=== PATIENT | male | born 1975 | race Caucasian/White ===

== ENCOUNTER 2016-03-21 12:13 | Emergency (ER) | payer OTHER ==
[2016-03-21 13:39] VITALS: BP 129/87
--- NOTE | 2016-03-21 14:20 | UC ---
Throat Pain/Nasal Ganesh HPI - HPI Summary HPI Summary: Pt c/o fatigue, sinus congestion, ear pain bilateral with right greater than left., sore throat, and PND X 2 weeks. - History of Current Complaint Chief Complaint: UCGeneralIllness Stated Complaint: COUGH,SINUS,EAR PAIN Time Seen by Provider: 03/21/16 13:56 Hx Obtained From: Patient Onset/Duration: Gradual Onset, Lasting Weeks Severity: Mild Associated Signs & Symptoms: Positive: Other - sinus pressure, pain - Allergies/Home Medications Allergies/Adverse Reactions: Allergies Allergy/AdvReac Type Severity Reaction Status Date / Time seasonal allergy Allergy Eyes Uncoded 03/21/16 13:31 Itchy/Swollen/Red/Watery Home Medications: Home Medications Pseudoephedrine TAB* [Sudafed TAB*] 30 mg PO Q6H PRN 03/21/16 [History Confirmed 03/21/16] PMH/Surg Hx/FS Hx/Imm Hx Previously Healthy: Yes Respiratory History Of: Reports: Asthma - Surgical History Surgical History: Yes Surgery Procedure, Year, and Place: t/a as child. ear tubes as child - Family History Known Family History: Negative: Cardiac Disease, Hypertension, Diabetes - Social History Alcohol Use: Occasionally Substance Use Type: None Smoking Status (MU): Former Smoker When Did the Patient Quit Smoking/Using Tobacco: 18 years ago - Immunization History Most Recent Influenza Vaccination: not this season Review of Systems Constitutional: Fatigue Skin: Negative Eyes: Negative ENT: Sore Throat, Ear Ache, Other - sinus pressure Respiratory: Negative Cardiovascular: Negative Gastrointestinal: Negative Genitourinary: Negative Motor: Negative Neurovascular: Negative Musculoskeletal: Myalgia Neurological: Headache Psychological: Negative All Other Systems Reviewed And Are Negative: Yes Physical Exam Triage Information Reviewed: Yes Appearance: Ill-Appearing Vital Signs: Initial Vital Signs Temp 98.7 F 03/21/16 13:33 Pulse 78 03/21/16 13:33 Resp 16 03/21/16 13:33 BP 129/87 03/21/16 13:33 Pulse Ox 97 03/21/16 13:33 Vital Signs Reviewed: Yes ENT Exam: Other ENT: Positive: Nasal congestion, Other: - maxillary sinus tenderness Neck exam: Normal Respiratory Exam: Normal Cardiovascular Exam: Normal Musculoskeletal Exam: Normal Neurological Exam: Normal Psychological Exam: Normal Skin Exam: Normal Throat Pain/Nasal Course/Dx - Differential Dx/Diagnosis Differential Diagnosis/HQI/PQRI: Influenza, Pharyngitis, Sinusitis, URI Provider Diagnoses: sinusitis Discharge - Discharge Plan Condition: Stable Disposition: HOME Prescriptions: Amoxicillin (*) 875 mg PO BID #20 tab Pseudoephedrine-Guaifenesin [Mucinex D 60-600 mg] 1 tab PO DAILY #10 tab Patient Education Materials: Sinusitis (ED) Forms: *Work Release Referrals: CHRISTOFER Ohara [Primary Care Provider] -
== END 2016-03-21 14:38 | disposition home or self-care (01) ==
LOC: UCCORT 12:13
DX: J32.9 Chronic sinusitis, unspecified (principal); H92.03 Otalgia, bilateral; R53.83 Other fatigue; Z87.891 Personal history of nicotine dependence
CPT/HCPCS: 99212; G0463

== ENCOUNTER 2016-06-19 09:18 | Emergency (ER) | payer OTHER ==
[2016-06-19 09:50] VITALS: BP 131/80
--- NOTE | 2016-06-19 10:05 | UC ---
Throat Pain/Nasal Ganesh HPI - HPI Summary HPI Summary: NASAL CONGESTION X 5 DAYS, RIGHT EAR FULLNESS, DIZZINESS, PND , SINUS PRESSURE , MILD COUGH - History of Current Complaint Chief Complaint: UCRespiratory Stated Complaint: DIZZY EARS CONGESTION Time Seen by Provider: 06/19/16 09:59 Hx Obtained From: Patient Onset/Duration: Gradual Onset, Lasting Days - 5, Still Present Severity: Moderate Cough: Nonproductive Associated Signs & Symptoms: Positive: Sinus Discomfort, Nasal Discharge. Negative: Fever, Rash - Allergies/Home Medications Allergies/Adverse Reactions: Allergies Allergy/AdvReac Type Severity Reaction Status Date / Time seasonal allergy Allergy Eyes Uncoded 06/19/16 09:40 Itchy/Swollen/Red/Watery PMH/Surg Hx/FS Hx/Imm Hx Respiratory History Of: Reports: Asthma - Surgical History Surgical History: Yes Surgery Procedure, Year, and Place: t/a as child. ear tubes as child - Family History Known Family History: Negative: Cardiac Disease, Hypertension, Diabetes - Social History Alcohol Use: Occasionally Substance Use Type: None Smoking Status (MU): Former Smoker When Did the Patient Quit Smoking/Using Tobacco: 18 years ago - Immunization History Most Recent Influenza Vaccination: not this season Review of Systems Constitutional: Negative Skin: Negative Eyes: Negative ENT: Sore Throat, Ear Ache, Nasal Discharge Respiratory: Cough Cardiovascular: Negative Gastrointestinal: Negative Genitourinary: Negative All Other Systems Reviewed And Are Negative: Yes Physical Exam Triage Information Reviewed: Yes Appearance: Well-Appearing, No Pain Distress, Well-Nourished Vital Signs: Initial Vital Signs Temp 100 F 06/19/16 09:33 Pulse 81 06/19/16 09:33 Resp 18 06/19/16 09:33 BP 131/80 06/19/16 09:33 Pulse Ox 97 06/19/16 09:33 Vital Signs Reviewed: Yes Eye Exam: Normal Eyes: Positive: Conjunctiva Clear ENT: Positive: Normal ENT inspection, Hearing grossly normal, Pharyngeal erythema, Nasal congestion, Nasal drainage, TMs normal. Negative: TM bulging, TM dull, TM red Neck: Positive: Supple, Nontender, No Lymphadenopathy Respiratory: Positive: Chest non-tender, Lungs clear, Normal breath sounds Cardiovascular Exam: Normal Cardiovascular: Positive: RRR, No Murmur, Pulses Normal Abdominal Exam: Normal Neurological Exam: Normal Neurological: Positive: Alert, Muscle Tone Normal Skin Exam: Normal Throat Pain/Nasal Course/Dx - Differential Dx/Diagnosis Provider Diagnoses: URI Discharge - Discharge Plan Condition: Stable Disposition: HOME Patient Education Materials: Upper Respiratory Infection (ED) Forms: *Work Release Referrals: CHRISTOFER Ohara [Primary Care Provider] - 7 Days
== END 2016-06-19 10:13 | disposition home or self-care (01) ==
LOC: UCCORT 09:18
DX: J06.9 Acute upper respiratory infection, unspecified (principal); J45.909 Unspecified asthma, uncomplicated; Z87.891 Personal history of nicotine dependence
CPT/HCPCS: 99212; G0463

== ENCOUNTER 2017-11-20 14:58 | Emergency (ER) | payer OTHER ==
--- NOTE | 2017-11-20 16:09 | UC ---
Dizzy HPI HPI Summary: involved in a divorce and is having a difficult time of it, not depressed, but anxious. noted some dizzyness on standing over the last 24-48 hours, using zyrtec and flonase for sesonal allergies - History Of Current Complaint Chief Complaint: UCGeneralIllness Stated Complaint: CONGESTION Time Seen by Provider: 11/20/17 15:57 Hx Obtained From: Patient Onset/Duration: Gradual Onset, Lasting Days Timing: Constant Severity Initially: Moderate Severity Currently: Mild Pain Intensity: 0 Character: Lightheaded, Dizzy Aggravating Factor(s): Position Change Alleviating Factor(s): Lying Down Associated Signs And Symptoms: Positive: Negative - Risk Factors Cardiac Risk Factors: Negative CVA Risk Factor: Negative - Allergies/Home Medications Allergies/Adverse Reactions: Allergies Allergy/AdvReac Type Severity Reaction Status Date / Time seasonal allergy Allergy Eyes Uncoded 11/20/17 15:33 Itchy/Swollen/Red/Watery PMH/Surg Hx/FS Hx/Imm Hx Previously Healthy: Yes - Surgical History Surgical History: Yes Surgery Procedure, Year, and Place: t/a as child. ear tubes as child - Family History Known Family History: Positive: Hypertension, Diabetes Negative: Cardiac Disease - Social History Alcohol Use: Occasionally Substance Use Type: None Smoking Status (MU): Former Smoker When Did the Patient Quit Smoking/Using Tobacco: 18 years ago - Immunization History Most Recent Influenza Vaccination: not this season Review of Systems Constitutional: Negative Skin: Negative Eyes: Negative ENT: Other - dizzyness on standing Respiratory: Negative Cardiovascular: Negative Gastrointestinal: Negative Genitourinary: Negative Motor: Negative Neurovascular: Negative Musculoskeletal: Negative Neurological: Negative Psychological: Negative Is Patient Immunocompromised?: No All Other Systems Reviewed And Are Negative: Yes Physical Exam Triage Information Reviewed: Yes Appearance: Well-Appearing Vital Signs: Initial Vital Signs Temp 37.4 C 11/20/17 15:27 Pulse 92 11/20/17 15:27 Resp 17 11/20/17 15:27 BP 143/96 11/20/17 15:27 Pulse Ox 100 11/20/17 15:27 Vital Signs Reviewed: Yes Eye Exam: Normal Eyes: Positive: Conjunctiva Clear ENT Exam: Normal ENT: Positive: Normal ENT inspection, Other - negative danilo- hallpike testing Dental Exam: Normal Neck exam: Normal Neck: Positive: Supple Respiratory Exam: Normal Respiratory: Positive: Chest non-tender Cardiovascular Exam: Normal Cardiovascular: Positive: RRR Abdominal Exam: Normal Abdomen Description: Positive: Nontender Bowel Sounds: Positive: Present Musculoskeletal: Positive: Strength Intact Neurological Exam: Normal Neurological: Positive: Alert Psychological Exam: Normal Skin Exam: Normal Dizzy Course/Dx - Differential Dx/Diagnosis Differential Diagnosis/HQI/PQRI: Anxiety Provider Diagnoses: dizzyness, without evidence of orthostasis or positional vertigo Discharge - Sign-Out/Discharge Documenting (check all that apply): Patient Departure All imaging exams completed and their final reports reviewed: Yes - Discharge Plan Condition: Good Disposition: HOME Patient Education Materials: Dizziness (ED) Forms: *Work Release Referrals: Marcos Saenz MD [Primary Care Provider] - - Billing Disposition and Condition Condition: GOOD Disposition: Home
[2017-11-20 16:30] VITALS: BP 138/99
== END 2017-11-20 16:27 | disposition home or self-care (01) ==
LOC: UCCORT 14:58
DX: R42 Dizziness and giddiness (principal); Z87.891 Personal history of nicotine dependence
CPT/HCPCS: 99212; G0463

== ENCOUNTER 2018-01-15 16:17 | Emergency (ER) | payer OTHER ==
[2018-01-15 16:35] VITALS: BP 140/94
--- NOTE | 2018-01-15 16:48 | UC ---
Throat Pain/Nasal Ganesh HPI - HPI Summary HPI Summary: 42 y/o male presents to the urgent care c/o sinus pressure and pain w/ yellowish nasal discharge for the past week. Symptoms worsen on Sudn Pt c/o pressure underneath eyes, also above forehead that started last Saturday. Concerned about sinus infection. Pt states did take time off work but needs note to go back to work. - History of Current Complaint Chief Complaint: UCGeneralIllness Stated Complaint: SINUS PAIN,ALLERGIES Time Seen by Provider: 01/15/18 16:46 Hx Obtained From: Patient Onset/Duration: Gradual Onset, Lasting Weeks - 1 week, Still Present, Worse Since - 3 days Severity: Moderate Pain Intensity: 5 Pain Scale Used: 0-10 Numeric Cough: Nonproductive Associated Signs & Symptoms: Positive: Sinus Discomfort, Nasal Discharge - yellowish Related History: Seasonal Allergies - Epiglottits Risk Factors Epiglottis Risk Factors: Negative - Allergies/Home Medications Allergies/Adverse Reactions: Allergies Allergy/AdvReac Type Severity Reaction Status Date / Time seasonal allergy Allergy Eyes Uncoded 01/15/18 16:28 Itchy/Swollen/Red/Watery Home Medications: Home Medications Chlorphenir/Phenyleph/Aspirin [Dede-Gridley Plus Cold Tab Eff] 1 tab PO ONCE 09/25 [History Confirmed 01/15/18] PMH/Surg Hx/FS Hx/Imm Hx Previously Healthy: Yes Cardiovascular History: Hypertension - diet controlled - Surgical History Surgical History: Yes Surgery Procedure, Year, and Place: t/a as child. ear tubes as child - Family History Known Family History: Positive: Hypertension, Diabetes Negative: Cardiac Disease - Social History Occupation: Employed Full-time Lives: With Family Alcohol Use: Occasionally Substance Use Type: None Smoking Status (MU): Former Smoker When Did the Patient Quit Smoking/Using Tobacco: 7 years ago - Immunization History Most Recent Influenza Vaccination: not this season Review of Systems Constitutional: Negative Eyes: Negative ENT: Nasal Discharge - yellowish, Sinus Congestion, Sinus Pain/Tenderness Respiratory: Cough - dry Cardiovascular: Negative Gastrointestinal: Negative Genitourinary: Negative Motor: Negative Neurovascular: Negative Musculoskeletal: Negative Neurological: Headache Psychological: Negative Is Patient Immunocompromised?: No All Other Systems Reviewed And Are Negative: Yes Physical Exam - Summary Physical Exam Summary: Vitals: reviewed General: Well developed, well-nourished male patient with NAD. Head and face: Normocephalic and atraumatic, Positive tenderness over the frontal and maxillary sinuses.. Eyes: PERRLA, EOMI x 2. Normal conjunctiva. No eye discharge. ENT: Ears and TM with normal limits. Nose: edematous and erythematous nasal mucosa with with yellowish discharge and erythematous mucosa. Pharynx with erythema, no exudate. +yellowish PND Neck: Supple, no JVD, no carotid bruits and no lymphadenopathy. Lungs: clear, no rales, no rhonchi, no wheezes. CVS: RRR, S1 and S2 present no murmurs or gallops appreciated. Abdomen: soft nontender with positive bowel sounds. Extremities: no edema noted. Neuro: WNL. Skin: warm and dry Triage Information Reviewed: Yes Vital Signs: Initial Vital Signs Temp 99.2 F 01/15/18 16:29 Pulse 98 01/15/18 16:29 Resp 16 01/15/18 16:29 BP 140/94 01/15/18 16:29 Pulse Ox 97 01/15/18 16:29 Throat Pain/Nasal Course/Dx - Course Course Of Treatment: Pt with 2 weeks of symptoms getting worse. Pt Rx Amoxicillin PO and flonase nasal spray. Tessalon PO for cough. Discharge instructions explained to Pt. Advised to Return to the clinic or PCP if symptoms do not improve.Pt understood and agreed with plan of care. - Differential Dx/Diagnosis Differential Diagnosis/HQI/PQRI: Influenza, Laryngitis, Pharyngitis, Sinusitis, URI Provider Diagnoses: 1- Bacterial sinusitis Discharge - Sign-Out/Discharge Documenting (check all that apply): Patient Departure - D/c home All imaging exams completed and their final reports reviewed: No Studies - Discharge Plan Condition: Stable Disposition: HOME Prescriptions: Amoxicillin/Clavulanate TAB* [Augmentin TAB 875*] 875 mg PO BID #20 tab Fluticasone NASAL SPRAY 50MCG* [Flonase NASAL SPRAY 50MCG*] 2 spray BOTH NARES DAILY #1 btl Patient Education Materials: Sinusitis (ED), Low-Sodium Diet (ED) Forms: *Work Release Referrals: Marcos Saenz MD [Primary Care Provider] - 1 Week Additional Instructions: 1- Please increase fluid intake and rest. take full course of antibiotic to avoid resistance 2-Use Flonase nasal spray as directed to help drain fluid. Also buy saline drops to clear sinuses 3-Please Take Claritin PO to alleviate sinus congestion 4-Return to the clinic or PCP in 3 days if symptoms do not improve for further management and treatment. 5-Your BP is elevated today. please decrease salt in your diet, monitor BP and if it continues to be elevated please f/u with your PCP for further management - Billing Disposition and Condition Condition: STABLE Disposition: Home
== END 2018-01-15 17:25 | disposition home or self-care (01) ==
LOC: UCEAST 16:17
DX: J32.8 Other chronic sinusitis (principal); B96.89 Other specified bacterial agents as the cause of diseases classified elsewhere; Z87.891 Personal history of nicotine dependence
CPT/HCPCS: 99212; G0463

== ENCOUNTER 2018-01-20 18:13 | Emergency (ER) | payer OTHER ==
[2018-01-20 18:24] VITALS: BP 118/88
--- NOTE | 2018-01-20 19:25 | UC ---
Headache HPI - HPI Summary HPI Summary: 42 y/o male presents to the urgent care c/o body aches and RAMIREZ. Pt reports he was here on 01/15/2018 and Dx w/ bacterial sinusitis and Rx Augmenting. His sinusitis started 2 weeks ago. He reports symptoms were improving until 2 days ago when RAMIREZ returned w/ body aches and fatigue. 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 He took Ibuprofen PO today and RAMIREZ resolved. He requests a note for work since his symptoms has not completely resolved. Pt denies cough, SOB, chest pain, abdominal pain, N/V/D. - History Of Current Complaint Chief Complaint: UCHeadache Stated Complaint: HEADACHE Time Seen by Provider: 01/20/18 19:05 Hx Obtained From: Patient Onset/Duration: Gradual Onset, Lasting Weeks - 2 weeks, Worse Since - 2 days Onset Of Symptoms: Resolved Initially Headache Was: Moderate Currently Pain Is: Mild Pain Intensity: 4 - body aches Pain Scale Used: 0-10 Numeric Timing: Intermittent, Lasting:, Hours - 2 hrs Character: Typical Headache Location of Headache: Diffuse Aggravating Factor(s): Other - body achesa and fatigue Allevating Factor(s): Rest, Medication Associated Signs And Symptoms: Positive: Sinus Pressure. Negative: Dizziness, Seizure, Nausea, Vomiting, Fever, Neck Pain, Neck Stiffness, Decreased LOC, Visual Changes - Risk Factors SAH Risk Factors: Negative Meningitis Risk Factors: Negative SDH Risk Factors: Negative Temporal Arteritis Risk Factors: Negative - Allergies/Home Medications Allergies/Adverse Reactions: Allergies Allergy/AdvReac Type Severity Reaction Status Date / Time seasonal allergy Allergy Eyes Uncoded 01/20/18 18:25 Itchy/Swollen/Red/Watery Home Medications: Home Medications Acetaminophen [Pain Relief] 500 mg PO ONCE PRN 01/20/18 [History Confirmed 01/20] PMH/Surg Hx/FS Hx/Imm Hx Previously Healthy: Yes Cardiovascular History: Hypertension - Surgical History Surgical History: Yes Surgery Procedure, Year, and Place: t/a as child. ear tubes as child - Family History Known Family History: Positive: Hypertension, Diabetes Negative: Cardiac Disease - Social History Occupation: Employed Full-time Lives: With Family Alcohol Use: Rare Substance Use Type: None Smoking Status (MU): Former Smoker When Did the Patient Quit Smoking/Using Tobacco: 7 years ago - Immunization History Most Recent Influenza Vaccination: not this season Review of Systems All Other Systems Reviewed And Are Negative: Yes Constitutional: Positive: Fatigue, Other - body aches Skin: Positive: Negative Eyes: Positive: Negative ENT: Positive: Nasal Discharge - clear Respiratory: Positive: Negative Cardiovascular: Positive: Negative Gastrointestinal: Positive: Negative Genitourinary: Positive: Negative Motor: Positive: Negative Neurovascular: Positive: Negative Musculoskeletal: Positive: Myalgia Neurological: Positive: Headache Psychological: Positive: Negative Is Patient Immunocompromised?: No Physical Exam - Summary Physical Exam Summary: VITAL SIGNS: Reviewed. GENERAL: Patient is a well developed and nourished male who is sitting comfortable in the examining table. Patient is not in any acute respiratory distress. HEAD AND FACE: No signs of trauma. No ecchymosis, hematomas or skull depressions. No sinus tenderness. EYES: PERRLA, EOMI x 2, No injected conjunctiva, no nystagmus. No photophobia. EARS: Hearing grossly intact. Ear canals and tympanic membranes are within normal limits. Nose: edematous and erythematous nasal mucosa w/ clear nasal discharge. MOUTH: Positive no erythema, no tonsillar enlargement. Uvula in midline. NECK: Supple, trachea is midline, Positive anterior cervical lymphadenopathy, no JVD, no carotid bruit, no c-spine tenderness, neck with full ROM. No meningeal signs, no Kernig's or brudzinskis signs. CHEST: Symmetric, no tenderness at palpation LUNGS: Clear to auscultation bilaterally. No wheezing or crackles. CVS: Regular rate and rhythm, S1 and S2 present, no murmurs or gallops appreciated. ABDOMEN: Soft, non-tender. No signs of distention. No rebound no guarding, and no masses palpated. Bowel sounds are normal. EXTREMITIES: FROM in all major joints, no edema, no cyanosis or clubbing. NEURO: Alert and oriented x 3. No acute neurological deficits. Speech is normal and follows commands. SKIN: Dry and warm Triage Information Reviewed: Yes Vital Signs: Initial Vital Signs Temp 98.1 F 01/20/18 18:19 Pulse 95 01/20/18 18:19 Resp 18 01/20/18 18:19 BP 118/88 01/20/18 18:19 Pulse Ox 99 01/20/18 18:19 Headache Course/Dx - Course Course Of Treatment: 42 y/o male presents to the urgent care c/o body aches and RAMIREZ. Pt reports he was here on 01/15/2018 and Dx w/ bacterial sinusitis and Rx Augmenting. His sinusitis started 2 weeks ago. He reports symptoms were improving until 2 days ago when RAMIREZ returned w/ body aches and fatigue. 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 He took Ibuprofen PO today and RAMIREZ resolved. He requests a note for work since his symptoms has not completely resolved. Pt denies cough, SOB, chest pain, abdominal pain, N/V/D. Hx obtained. PE:WNL. Pt possible viral syndrome. Influenza A&B ordered: result: negative. Pt advised to continue taking ibuprofen PO and finish Augmentin PO since symptoms were improving. Advised on hand washing. Pt advised to rest, increase fluid intake, eat well and avoid strenuous exercise. If symptoms do not improve or worsen advised to return to the urgent care or f/u with her PCP for further evaluation and treatment. Pt understood and agreed with plan of care. - Differential Dx/Diagnosis Differential Diagnosis/HQI/PQRI: Migraine, Sinus Headache, Tension Headache, Viral Syndrome Provider Diagnoses: 1- Viral syndrome. 2- Headache Discharge - Sign-Out/Discharge Documenting (check all that apply): Patient Departure - D/c home All imaging exams completed and their final reports reviewed: No Studies - Discharge Plan Condition: Stable Disposition: HOME Patient Education Materials: Viral Syndrome (ED) Forms: *Work Release Referrals: Marcos Saenz MD [Primary Care Provider] - 3 Days Additional Instructions: 1-Please take ibuprofen PO q6-8hrs prn as instructed after meals to alleviate pain and swelling. Increase fluid intake, eat well, rest and avoid strenuous exercise 2-If symptoms do not improve or worsen please return to the urgent care or f/u with your PCP in 3 days for further evaluation and treatment. - Billing Disposition and Condition Condition: STABLE Disposition: Home
== END 2018-01-20 20:10 | disposition home or self-care (01) ==
LOC: UCEAST 18:13
DX: B34.9 Viral infection, unspecified (principal); R51 Headache; I10 Essential (primary) hypertension; Z91.048 Other nonmedicinal substance allergy status; Z87.891 Personal history of nicotine dependence
CPT/HCPCS: 99211; G0463

== ENCOUNTER 2018-02-21 16:07 | Emergency (ER) | payer OTHER ==
[2018-02-21 16:18] VITALS: BP 134/81
--- NOTE | 2018-02-21 17:06 | UC ---
Knee Pain HPI - HPI Summary HPI Summary: Patient presents to urgent care reporting progressive pain and swelling and redness of his left knee. Patient states approximately 4 days ago he tripped and fell in the garage over an air hose. Pt landing on his left knee. Patient with an abrasion to his left knee. Patient states has not taken anything for pain or fever. Pt with difficulty walking related to pain and swelling. with difficulty flexing knee related to swelling. Patient states he's had no nausea vomiting. Patient is not immunocompromised. Patient's tetanus is up-to-date. Patient without any paresthesias to his ankle or foot. Patient without any other complaints. - History of Current Complaint Chief Complaint: UCLowerExtremity Stated Complaint: KNEE PAIN Time Seen by Provider: 02/21/18 16:56 Hx Obtained From: Patient Severity Initially: Moderate Severity Currently: Moderate Pain Intensity: 7 Pain Scale Used: 0-10 Numeric - Allergies/Home Medications Allergies/Adverse Reactions: Allergies Allergy/AdvReac Type Severity Reaction Status Date / Time seasonal allergy Allergy Eyes Uncoded 02/21/18 16:18 Itchy/Swollen/Red/Watery PMH/Surg Hx/FS Hx/Imm Hx Previously Healthy: Yes - Surgical History Surgical History: Yes Surgery Procedure, Year, and Place: t/a as child. ear tubes as child - Family History Known Family History: Positive: Hypertension, Diabetes Negative: Cardiac Disease - Social History Occupation: Employed Full-time Lives: With Family Alcohol Use: Rare Substance Use Type: None Smoking Status (MU): Former Smoker When Did the Patient Quit Smoking/Using Tobacco: 7 years ago - Immunization History Most Recent Influenza Vaccination: not this season Review of Systems All Other Systems Reviewed And Are Negative: Yes Constitutional: Positive: Fever Skin: Positive: Other - left knee Musculoskeletal: Positive: Other: - pain, swelling Left knee, LLE Is Patient Immunocompromised?: No Physical Exam - Summary Physical Exam Summary: Vital Signs Reviewed: Yes - tachycardic, febrile A+Ox3, discomfort with ambulation Eyes: Conjunctiva Clear, ENT: Hearing grossly normal mmmoist Neck: Positive: Supple Respiratory: Positive: No respiratory distress, No accessory muscle use Cardiovascular: 2+ DP, PT CBT < 2 sec Musculoskeletal Exam: Pt with diffuse edema left anterior patellar extening to prox anterior allen and 2/3 circumferential upper part of calf. Not tense, pain with calf pain Discomfort worse with flexion ofknee -pt states feels worse over patella. + flex/ext ankle, great toe extension without diffiuculty Neurological: Positive: Alert, + sensation throughout Psychological: Positive: Normal Response To Family Skin: Positive: left anterior patellar and prox allen with erythema, warmth. scabbed abraison on patella - no fluctuance, mild induration no drainage Triage Information Reviewed: Yes Vital Signs: Initial Vital Signs Temp 101.0 F 02/21/18 16:12 Pulse 120 02/21/18 16:12 Resp 16 02/21/18 16:12 BP 134/81 02/21/18 16:12 Pulse Ox 99 02/21/18 16:12 Knee Pain Course/Dx - Course Course Of Treatment: Patient presents to urgent care with progressive pain and discomfort in his left lower extremity. Patient states he had a mechanical fall approximately 4 days ago where he sustained an abrasion to his left knee. Patient with progressive erythema, edema and warmth and pain in this area. Patient has not taken any analgesia. Patient walking with a limp so didn't do pain. Patient with cellulitis of the patella to the anterior allen. Patient with mild tension to the proximal calf but not throughout. Patient flex extend ankle without difficulty. Patient noted be febrile and tachycardic urgent care. We'll give Tylenol. Recommend patient to emergency department. Just patient patient may need labwork intravenous fluids and possibly intravenous antibiotics. Patient's tetanus is up-to-date. Patient declined EMS transfer. Patient will drive himself. Advised patient to pullover call 911 symptoms changes. We'll notify the ED of patient transfer. Patient aware that treatment plan will be at the discretion of the providers emergency department. Pt in agreement with plan. Dr. He 17:20 - ED - aware of pt coming by POV - Differential Dx/Diagnosis Provider Diagnosis: Abrasion of left knee, Cellulitis of left leg Discharge - Sign-Out/Discharge Documenting (check all that apply): Patient Departure All imaging exams completed and their final reports reviewed: No Studies - Discharge Plan Condition: Stable Disposition: HOME-RECOMMEND TO ED Patient Education Materials: Cellulitis (ED) Referrals: Marcos Saenz MD [Primary Care Provider] - Additional Instructions: The doctor that evaluated you today thinks that you need additional testing that can be completed the emergency department. It is recommended that you go directly to emergency department for further evaluation. Please let the providers at the desk in the emergency department now you were sent from the urgent care center. This evaluation may include blood work or imaging. This testing will be directed and decided by the provider that evaluate you at the emergency department. If pain becomes worse, you feel lightheaded, you have uncontrolled vomiting, or you have any other concerns while you are being driven to emergency department as recommended to pullover and contact 911. - Billing Disposition and Condition Condition: STABLE Disposition: Home-Recommend to ED
[2018-02-21] MEDS ORDERED: Acetaminophen TAB* 325 MG PO ONE (17:16)
== END 2018-02-21 17:39 | disposition home health service (06) ==
LOC: UCEAST 16:07
DX: S80.212A Abrasion, left knee, initial encounter (principal); L03.116 Cellulitis of left lower limb; W18.09XA Striking against other object with subsequent fall, initial encounter; Y92.015 Private garage of single-family (private) house as the place of occurrence of the external cause
CPT/HCPCS: 99212; A9270-GY; G0463

== ENCOUNTER 2018-02-21 17:49 | Emergency (ER) | payer OTHER ==
[2018-02-21] MEDS ORDERED: Sulfamethox/Trimethoprim DS 800/160* TAB PO ONE (18:45)
--- NOTE | 2018-02-21 18:46 | ED ---
Lower Extremity - HPI Summary HPI Summary: Complains of left knee pain after mechanical fall in his garage a few days ago. States left knee started also to become red and warm yesterday. Pain worse with movement. Denies any other pain, injuries, symptoms. Medical history is HDL. - History of Current Complaint Chief Complaint: EDExtremityLower Stated Complaint: LT LEG PAIN/ISSUE Time Seen by Provider: 02/21/18 18:31 Hx Obtained From: Patient Mechanism Of Injury: Fall From A Standing Position Onset of Pain: Immediate Onset/Duration: Days Severity Initially: Moderate Severity Currently: Moderate Pain Intensity: 7 Pain Scale Used: 0-10 Numeric Timing: Constant Location: Is Discrete @ Character Of Pain: Aching, Throbbing Associated Signs And Symptoms: Positive: Swelling, Redness, Knee Pain Aggravating Factor(s): Standing, Ambulation, Movement, Weight Bearing Alleviating Factor(s): Rest Able to Bear Weight: Yes - Allergies/Home Medications Allergies/Adverse Reactions: Allergies Allergy/AdvReac Type Severity Reaction Status Date / Time seasonal allergy Allergy Eyes Uncoded 02/21/18 16:18 Itchy/Swollen/Red/Watery PMH/Surg Hx/FS Hx/Imm Hx Endocrine/Hematology History: Denies: Hx Anticoagulant Therapy Cardiovascular History: Denies: Hx Cardiac Arrest, Hx Hypertension Respiratory History: Reports: Hx Asthma History: Denies: Hx Dialysis EENT History: Denies: Hx Deafness Psychiatric History: Denies: Hx Autism - Surgical History Surgery Procedure, Year, and Place: t/a as child. ear tubes as child Infectious Disease History: No Infectious Disease History: Denies: Traveled Outside the [place] in Last 30 Days - Family History Known Family History: Positive: Hypertension, Diabetes Negative: Cardiac Disease - Social History Alcohol Use: Occasionally Substance Use Type: Reports: None Smoking Status (MU): Former Smoker Review of Systems Constitutional: Negative Eyes: Negative ENT: Negative Cardiovascular: Negative Respiratory: Negative Gastrointestinal: Negative Genitourinary: Negative Musculoskeletal: Other Skin: Negative Neurological: Negative Psychological: Normal All Other Systems Reviewed And Are Negative: Yes Physical Exam - Summary Physical Exam Summary: Full range of motion with pain of left knee. Positive erythema, extra warmth, swelling, induration of skin over left kneecap. No joint effusion. No apical abscess. Nontender. Erythema extending down along the anterior allen to left ankle. PMS intact distally. Negative Homans sign. Triage Information Reviewed: Yes Vital Signs On Initial Exam: Initial Vitals Temp Pulse Resp BP Pulse Ox 99 F 104 18 141/82 96 02/21/18 17:55 02/21/18 17:55 02/21/18 17:55 02/21/18 17:55 02/21/18 17:55 Vital Signs Reviewed: Yes Appearance: Positive: Well-Appearing Skin: Positive: Warm Head/Face: Positive: Normal Head/Face Inspection Eyes: Positive: Normal Neck: Positive: Supple Respiratory/Lung Sounds: Positive: Clear to Auscultation Cardiovascular: Positive: Normal Abdomen Description: Positive: Nontender Musculoskeletal: Positive: Normal Neurological: Positive: Normal Psychiatric: Positive: Normal AVPU Assessment: Alert - Jay Coma Scale Best Eye Response: 4 - Spontaneous Best Motor Response: 6 - Obeys Commands Best Verbal Response: 5 - Oriented Coma Scale Total: 15 Diagnostics - Vital Signs Vital Signs Temp Pulse Resp BP Pulse Ox 02/21/18 17:55 99 F 104 18 141/82 96 - Laboratory Lab Statement: Any lab studies that have been ordered have been reviewed, and results considered in the medical decision making process. Lower Extremity Course/Dx - Course Course Of Treatment: Complains of left knee pain after mechanical fall in his garage a few days ago. States left knee started also to become red and warm yesterday. Pain worse with movement. Denies any other pain, injuries, symptoms. Medical history is HDL. Physical exam:Full range of motion with pain of left knee. Positive erythema, extra warmth, swelling, induration of skin over left kneecap. No joint effusion. No apical abscess. Nontender. Erythema extending down along the anterior allen to left ankle. PMS intact distally. Negative Homans sign. Vital signs within normal limits. X-ray negative for fracture. Physical exam lessens suspicion for septic joint. Likely diagnosis cellulitis. Rx for Bactrim - Diagnoses Provider Diagnoses: Fall, Cellulitis Discharge - Sign-Out/Discharge Documenting (check all that apply): Patient Departure - Discharge Plan Condition: Stable Disposition: HOME Prescriptions: Sulfamethox/Trimethoprim DS* [Bactrim DS 800/160 TAB*] 1 tab PO BID 10 Days #20 tab Patient Education Materials: Cellulitis (ED) Referrals: Marcos Saenz MD [Primary Care Provider] - Additional Instructions: Take antibiotics as directed. Ibuprofen for pain. Follow-up with primary care. Return to the ED for any new or worsening symptoms - Billing Disposition and Condition Condition: STABLE Disposition: Home
[2018-02-21 19:11] VITALS: BP 128/80
== END 2018-02-21 19:10 | disposition home or self-care (01) ==
LOC: ED 17:49
DX: L03.116 Cellulitis of left lower limb (principal); Z87.891 Personal history of nicotine dependence
CPT/HCPCS: 99282; A9270-GY

== ENCOUNTER 2018-07-18 14:53 | Emergency (ER) | payer OTHER ==
[2018-07-18 15:10] VITALS: BP 139/81
--- NOTE | 2018-07-18 15:19 | UC ---
Throat Pain/Nasal Ganesh HPI - HPI Summary HPI Summary: 43 yo male presents with sinus congestion/pressure, post nasal drip, dry cough, sneezing, and fatigue. He tells me that he gets "bad allergies" around this time of year and manages this with OTC allergy medications. He has been taking tylenol cold/flu and using his inhalers in addition to antihistamines. He took the last 2 days off of work and is requesting a note to return tomorrow. He is also requesting a duoneb treatment as he has had this in the past and it helped with his coughing when he has had allergies in the past. Denies fever, chills, SOB, chest pain, rash. - History of Current Complaint Chief Complaint: UCRespiratory Stated Complaint: SINUS COMPLAINT Time Seen by Provider: 07/18/18 15:19 Hx Obtained From: Patient Onset/Duration: Gradual Onset Severity: Mild Pain Intensity: 4 Pain Scale Used: 0-10 Numeric Cough: Nonproductive - Allergies/Home Medications Allergies/Adverse Reactions: Allergies Allergy/AdvReac Type Severity Reaction Status Date / Time seasonal allergy Allergy Eyes Uncoded 02/21/18 16:18 Itchy/Swollen/Red/Watery PMH/Surg Hx/FS Hx/Imm Hx - Additional Past Medical History Additional PMH: Seasonal allergies Respiratory History: Asthma Other History Of: Negative For: Anticoagulant Therapy - Surgical History Surgical History: Yes Surgery Procedure, Year, and Place: t/a as child. ear tubes as child - Family History Known Family History: Positive: Hypertension, Diabetes Negative: Cardiac Disease - Social History Occupation: Employed Full-time Lives: With Family Alcohol Use: Occasionally Substance Use Type: None Smoking Status (MU): Former Smoker When Did the Patient Quit Smoking/Using Tobacco: 7 years ago - Immunization History Most Recent Influenza Vaccination: not this season Review of Systems All Other Systems Reviewed And Are Negative: Yes Constitutional: Positive: Negative Skin: Positive: Negative Eyes: Positive: Negative ENT: Positive: Nasal Discharge, Sinus Congestion Respiratory: Positive: Cough Cardiovascular: Positive: Negative Gastrointestinal: Positive: Negative Neurovascular: Positive: Negative Neurological: Positive: Negative Psychological: Positive: Negative Physical Exam - Summary Physical Exam Summary: GENERAL: NAD. WDWN. No pain distress. SKIN: No rashes, sores, lesions, or open wounds. HEENT: Head: AT/NC Eyes: EOM intact. Conjunctiva clear without inflammation or discharge. Ears: Hearing grossly normal. TMs intact, no bulging, erythema, or edema. Nose: Nasal mucosa pink and moist. NTTP maxillary and frontal sinus. Throat: Posterior oropharynx without exudates, erythema, or tonsillar enlargement. Uvula midline. NECK: Supple. Nontender. No lymphadenopathy. CHEST: CTAB. No r/r/w. No accessory muscle use. Breathing comfortably and in no distress. CV: RRR. Without m/r/g. Pulses intact. Cap refill <2seconds NEURO: Alert. PSYCH: Age appropriate behavior. Triage Information Reviewed: Yes Vital Signs: Initial Vital Signs Temp 98.0 F 07/18/18 15:03 Pulse 77 07/18/18 15:03 Resp 16 07/18/18 15:03 BP 139/81 07/18/18 15:03 Pulse Ox 95 07/18/18 15:03 Vital Signs Reviewed: Yes Throat Pain/Nasal Course/Dx - Course Course Of Treatment: Suspect seasonal allergies. Advised to continue OTC medications. He was given a duoneb treatment in the clinic with subjective relief and less coughing. - Differential Dx/Diagnosis Provider Diagnosis: Seasonal allergies Discharge - Sign-Out/Discharge Documenting (check all that apply): Patient Departure All imaging exams completed and their final reports reviewed: No Studies - Discharge Plan Condition: Stable Disposition: HOME Patient Education Materials: Allergies (ED) Forms: *Work Release Referrals: Marcos Saenz MD [Primary Care Provider] - Additional Instructions: If you develop a fever, shortness of breath, chest pain, new or worsening symptoms - please call your PCP or go to the ED immediately. Your blood pressure was high at todays visit. Please see your primary provider within 4 weeks for recheck and re-evaluation. 1) Continue your inhalers and allergy medications - Billing Disposition and Condition Condition: STABLE Disposition: Home - Attestation Statements Provider Attestation: This patient was not seen by me. I was available for consult.
[2018-07-18] MEDS ORDERED: Albuterol/Ipratropium NEB.SOL* Albuterol 2.5 MG/Ipratropium 0.5 MG 3 ML INH ONE (15:24)
== END 2018-07-18 15:55 | disposition home or self-care (01) ==
LOC: UCEAST 14:53
DX: J30.2 Other seasonal allergic rhinitis (principal); J45.909 Unspecified asthma, uncomplicated; Z83.3 Family history of diabetes mellitus; Z82.49 Family history of ischemic heart disease and other diseases of the circulatory system; Z87.891 Personal history of nicotine dependence
CPT/HCPCS: 99212; A9270-GY; G0463

== ENCOUNTER 2018-11-10 13:23 | Emergency (ER) | payer OTHER ==
[2018-11-10 13:32] VITALS: BP 125/87
--- NOTE | 2018-11-10 13:50 | UC ---
Throat Pain/Nasal Ganesh HPI - HPI Summary HPI Summary: 43 year old male, worker at [employer], PMH + for sinus congestion in the fall, presents with s/s starting Th with congestion, ear pain, fullness, fatigue, intermittent dizziness. 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 no fever, ? chill over the weekend. no recent abx. - History of Current Complaint Chief Complaint: UCGI Stated Complaint: VOMITING CONGESTION Time Seen by Provider: 11/10/18 13:35 Hx Obtained From: Patient Onset/Duration: Sudden Onset, Lasting Days, Still Present Severity: Mild Pain Intensity: 0 Pain Scale Used: 0-10 Numeric Cough: None Associated Signs & Symptoms: Positive: Sinus Discomfort, Nasal Discharge, Vomiting - saturday, none since - Allergies/Home Medications Allergies/Adverse Reactions: Allergies Allergy/AdvReac Type Severity Reaction Status Date / Time seasonal allergy Allergy Eyes Uncoded 11/10/18 13:31 Itchy/Swollen/Red/Watery PMH/Surg Hx/FS Hx/Imm Hx Previously Healthy: Yes Other History Of: Negative For: Anticoagulant Therapy - Surgical History Surgical History: Yes Surgery Procedure, Year, and Place: t/a as child. ear tubes as child - Family History Known Family History: Positive: Hypertension, Diabetes, Non-Contributory Negative: Cardiac Disease - Social History Alcohol Use: Occasionally Substance Use Type: None Smoking Status (MU): Former Smoker When Did the Patient Quit Smoking/Using Tobacco: 7 years ago - Immunization History Most Recent Influenza Vaccination: not this season Review of Systems All Other Systems Reviewed And Are Negative: Yes Constitutional: Positive: Chills, Fatigue. Negative: Fever Eyes: Positive: Negative ENT: Positive: Ear Ache, Sinus Congestion, Sinus Pain/Tenderness Respiratory: Positive: Negative Is Patient Immunocompromised?: No Physical Exam Triage Information Reviewed: Yes Appearance: Well-Appearing, No Pain Distress, Well-Nourished Vital Signs: Initial Vital Signs Temp 98.7 F 11/10/18 13:29 Pulse 71 11/10/18 13:29 Resp 18 11/10/18 13:29 BP 125/87 11/10/18 13:29 Pulse Ox 98 11/10/18 13:29 Vital Signs Reviewed: Yes Eyes: Positive: Conjunctiva Clear ENT: Positive: Hearing grossly normal, Pharynx normal, TMs normal - right, TM bulging - L, TM dull - L, TM red - left, Sinus tenderness - frontal, left sided , Uvula midline. Negative: Pharyngeal erythema, Tonsillar swelling, Tonsillar exudate Neck exam: Normal Neck: Positive: Supple, Nontender, Enlarged Nodes @ - left periaur, submand Respiratory: Positive: Chest non-tender, Lungs clear, Normal breath sounds, No respiratory distress, No accessory muscle use Cardiovascular: Positive: RRR, No Murmur Neurological Exam: Normal Psychological Exam: Normal Skin Exam: Normal Skin: Negative: Rashes Throat Pain/Nasal Course/Dx - Course Course Of Treatment: Ear infection, left sided - Antibiotics as directed x 7 days - Increase fluid intake - CLaritin as needed for congestion - Follow up with primary wihtin 2-3 days if no improvement - Go to ER with fever > 102, neck pain, increased ear pain, drainage - Work note given - Differential Dx/Diagnosis Differential Diagnosis/HQI/PQRI: Influenza, Otitis Media, Pharyngitis, URI Provider Diagnosis: AOM (acute otitis media) Discharge ED - Sign-Out/Discharge Documenting (check all that apply): Patient Departure All imaging exams completed and their final reports reviewed: No Studies - Discharge Plan Condition: Good Disposition: HOME Prescriptions: Amoxicillin PO (*) [Amoxicillin 875 MG (*)] 875 mg PO BID #14 tab Patient Education Materials: Ear Infection (ED) Forms: *Work Release Referrals: Marcos Saenz MD [Primary Care Provider] - Additional Instructions: Ear infection, left sided - Antibiotics as directed x 7 days - Increase fluid intake - CLaritin as needed for congestion - Follow up with primary wihtin 2-3 days if no improvement - Go to ER with fever > 102, neck pain, increased ear pain, drainage - Work note given - Billing Disposition and Condition Condition: GOOD Disposition: Home - Attestation Statements Provider Attestation: This patient was not seen by me. I was available for consult. SALLY
== END 2018-11-10 13:56 | disposition home or self-care (01) ==
LOC: UCEAST 13:23
DX: H66.93 Otitis media, unspecified, bilateral (principal); Z87.891 Personal history of nicotine dependence
CPT/HCPCS: 99212; G0463

== ENCOUNTER 2019-05-07 16:32 | Emergency (ER) | payer OTHER ==
[2019-05-07 16:43] VITALS: BP 144/98
--- NOTE | 2019-05-07 17:05 | UC ---
Shoulder Pain HPI - HPI Summary HPI Summary: 44 yo male presents with LEFT back pain. He tells me that a few days ago he noticed a gradual pain in his left mid back that was worse with movement. 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 He took tylenol and felt better. This morning he was brushing the snow off his car and he went to lift the [employer] wiper and felt a strong pull and spasm in his left mid back. Has been painful since that time and is worse with movement. He has not taken anything OTC for his discomfort. He denies radiation of pain, SOB, chest pain, abdominal pain, n/v, numbness, or tingling. - History of Current Complaint Chief Complaint: UCBackPain Stated Complaint: SIDE PAIN Time Seen by Provider: 05/07/19 17:04 Hx Obtained From: Patient Onset/Duration: Sudden Onset Severity Initially: Severe Severity Currently: Moderate Pain Intensity: 7 Pain Scale Used: 0-10 Numeric - Allergies/Home Medications Allergies/Adverse Reactions: Allergies Allergy/AdvReac Type Severity Reaction Status Date / Time seasonal allergy Allergy Eyes Uncoded 11/10/18 13:31 Itchy/Swollen/Red/Watery Home Medications: Home Medications Cetirizine* [ZyrTEC 10 MG TAB*] 10 mg PO DAILY PRN 02/09/16 [History Confirmed 05/07/19] Multivitamin [Multivitamins] 1 cap PO DAILY 02/09/16 [History Confirmed 05/07/19 ] Acetaminophen [Pain Relief] 1,000 mg PO ONCE PRN 01/20/18 [History Confirmed ] Cyclobenzaprine TAB* [Flexeril 10 MG TAB*] 10 mg PO BID PRN #14 tab 05/07/19 [Rx ] Fluticasone NASAL SPRAY 50MCG* [Flonase NASAL SPRAY 50MCG*] 2 spray BOTH NARES DAILY PRN 05/07/19 [History Confirmed 05/07/19] Fluticasone Propion/Salmeterol [Wixela 250-50 Inhub] 1 each INH BID 05/07/19 [ History Confirmed 05/07/19] Naproxen [Naproxen 500 mg tab] 500 mg PO BID PRN #30 tablet. 05/07/19 [Rx] PMH/Surg Hx/FS Hx/Imm Hx Endocrine History: Dyslipidemia Respiratory History: Asthma Other History Of: Negative For: Anticoagulant Therapy - Surgical History Surgical History: Yes Surgery Procedure, Year, and Place: t/a as child. ear tubes as child - Family History Known Family History: Positive: Hypertension, Diabetes, Non-Contributory Negative: Cardiac Disease - Social History Lives: With Family Alcohol Use: Rare Substance Use Type: None Smoking Status (MU): Former Smoker When Did the Patient Quit Smoking/Using Tobacco: 7 years ago - Immunization History Most Recent Influenza Vaccination: not this season Review of Systems All Other Systems Reviewed And Are Negative: No Constitutional: Positive: Negative Skin: Positive: Negative Respiratory: Positive: Negative Cardiovascular: Positive: Negative Neurovascular: Positive: Negative Musculoskeletal: Positive: Other: - Left midback pain Neurological/Mental Status: Positive: Negative Physical Exam - Summary Physical Exam Summary: GENERAL: NAD. WDWN. No pain distress. SKIN: No rashes, sores, lesions, or open wounds. CHEST: CTAB. No accessory muscle use. Breathing comfortably and in no distress. CV: RRR. No m/r/g. Pulses intact radial and ulnar. Cap refill <2seconds MSK: LEFT MID BACK: TTP about left thoracic paraspinal muscles. Pain here with movement of left upper extremity and truncal twisting. B/L UEs Strength 5/5 including visual design lead strength. NEURO: Alert. Sensations intact hand and all fingers. PSYCH: Age appropriate behavior. Triage Information Reviewed: Yes Vital Signs: Initial Vital Signs Temp 98.4 F 05/07/19 16:39 Pulse 100 05/07/19 16:39 Resp 16 05/07/19 16:39 BP 144/98 05/07/19 16:39 Pulse Ox 99 05/07/19 16:39 Vital Signs Reviewed: Yes Shoulder Course/Dx - Course Course Of Treatment: Suspect muscle spasm. In the clinic pt was given toradol for his discomfort. Rx for flexeril and naproxen. Advised to rest and apply ice/heat and practice gentle ROM exercises. - Differential Dx/Diagnosis Provider Diagnosis: Muscle spasm Discharge ED - Sign-Out/Discharge Documenting (check all that apply): Patient Departure All imaging exams completed and their final reports reviewed: No Studies - Discharge Plan Condition: Stable Disposition: HOME Prescriptions: Cyclobenzaprine TAB* [Flexeril 10 MG TAB*] 10 mg PO BID PRN #14 tab PRN Reason: Pain - Moderate Naproxen [Naproxen 500 mg tab] 500 mg PO BID PRN #30 tablet.dr MIRANDA Reason: Pain - Moderate Patient Education Materials: Muscle Spasm (ED) Referrals: Marcos Saenz MD [Primary Care Provider] - Additional Instructions: If you develop a fever, shortness of breath, chest pain, new or worsening symptoms - please call your PCP or go to the ED immediately. Your blood pressure was high at todays visit. Please see your primary provider within 4 weeks for recheck and re-evaluation. 1) Rest and apply heat to your area of discomfort 2) May start naproxen tomorrow - Billing Disposition and Condition Condition: STABLE Disposition: Home
[2019-05-07] MEDS ORDERED: Ketorolac *IM* INJ* 60 MG/2 ML VIAL IM ONE (17:17)
== END 2019-05-07 17:45 | disposition home or self-care (01) ==
LOC: UCEAST 16:32
DX: M62.830 Muscle spasm of back (principal); J45.909 Unspecified asthma, uncomplicated; Z79.899 Other long term (current) drug therapy; Z87.891 Personal history of nicotine dependence
CPT/HCPCS: 96372; 99212; G0463; J1885